=== PATIENT | male | born 1950 | race Caucasian/White ===

== ENCOUNTER → 2018-04-28 | Day surgery (SDC) | payer OTHER ==
[~2018-04-28] MED LIST: HYDR-2762 PO; HYDROmorphone 2 MG/ML VIAL IV PRN; IV RINGERS,LACTATED 1000ML 1,000 ML IV SCH; LIDOCAINE 1% PF 2 ML VIAL. ID PRN; LIDOCAINE 2% PF Vial for OR 5 ML VIAL. ONE; LOSA100T7 PO; MORPHINE SULFATE 2 MG/ML VIAL. IV PRN; ONDANSETRON PF 4 MG/2 ML VIAL. IV PRN; PROCHLORPERAZINE 10 MG/2 ML VIAL. IV PRN; PROPOFOL 40 ML IV ONE; fentaNYL PF VIAL 100 MCG/2 ML VIAL IV PRN
[2018-04-28 11:09] VITALS: BP 157/68
--- NOTE | 2018-04-28 23:18 | HP ---
ADMIT DATE: 04/28/2018 REFERRING: . REASON FOR VISIT: Recent history of colonic polyps. HISTORY OF PRESENT ILLNESS: A 67-year-old male with past medical history significant for hypertension, colonic polyps, seen for interval exam. Bowel habits are regular without diarrhea or constipation. There has been no melena and/or hematochezia. Weight and appetite are stable and he is otherwise without additional complaints. PAST MEDICAL HISTORY: Hypertension, colonic polyps. PAST SURGICAL HISTORY: Status post eye surgery and vasectomy. SOCIAL HISTORY: Social drinker, nonsmoker. FAMILY HISTORY: Otherwise noncontributory. REVIEW OF SYSTEMS: Per records. PHYSICAL EXAMINATION: GENERAL: Reveals a well-nourished, well-developed male, in no acute distress. VITAL SIGNS: Temperature 97.3, pulse 65, respiratory rate is 20. HEENT: Reveals normocephalic, atraumatic head. Pupils and extraocular movements are not tested. Sclerae are anicteric. NECK: Supple. LUNGS: Clear. CARDIOVASCULAR: Reveals an S1, S2 without S3, S4 or appreciable murmur. ABDOMEN: There was a soft abdomen, normal bowel sounds without appreciable hepatosplenomegaly. EXTREMITIES: Reveals no cyanosis, clubbing or edema. IMPRESSION: History of colonic polyps. Surveillance exam is recommended at this time. Risks and benefits have been discussed with the patient including risk of perforation. She is willing to proceed. SKYLA MCINTOSH MD DR: GABRIELA/george JOB#: [id number] / [id number]
--- NOTE | 2018-05-02 08:15 | PATHOLOGY ---
[facility] Accession Number: [id number] . 01 Material submitted: . PART A: BX SIGMOID POLYP PART B: BX TRANSVERSE COLON POLYP . 01 Clinical history: . Screening . 02 Diagnosis: A. Colon biopsies, sigmoid polyp: - Tubular adenoma. . B. Colon biopsies, transverse colon polyp: - Tubular adenoma. [facility]/05/01/2018 . 02 Comment: There is no high grade dysplasia or evidence of malignancy. . (JPM:mml; 05/01/18) . 02 Electronically signed: . Berry Randolph MD, Pathologist NPI- [id number] . 01 Gross description: . A. Received in formalin labeled "[place], BX sigmoid polyp," are 3 segments of lopez soft tissue measuring 0.7 x 0.2 x 0.2 cm in aggregate dimensions and ranging from 0.2 to 0.3 cm in maximum dimension. The specimen is submitted entirely in cassette A1. . B. Received in formalin labeled "[place], [place], BX transverse colon polyp," are 2 segments of lopez soft tissue measuring 0.7 x 0.3 x 0.2 cm in aggregate dimensions and ranging from 0.3 to 0.4 cm in maximum dimension. The specimen is submitted entirely in cassette B1. (TSD; 04/28/2018) TOB/TOB . 02 Pathologist provided ICD-10: D12.5, D12.3 . 02 CPT . 176367, [id number] Performed at: 01 [facility] [address], [place] [id number] MD Fili Grimes MD Phone: [phone] Performed at: 02 [facility] [place] [id number] MD Berry Randolph MD Phone: [phone]
== END | disposition home or self-care (01) ==
LOC: ENDOS 09:01
PROVIDERS: ATTEND Internal Medicine Gastroenterology
DX: Z12.11 Encounter for screening for malignant neoplasm of colon (principal); D12.5 Benign neoplasm of sigmoid colon; D12.3 Benign neoplasm of transverse colon; K64.0 First degree hemorrhoids; I10 Essential (primary) hypertension; Z86.010 Personal history of colon polyps; Z98.52 Vasectomy status; Z98.890 Other specified postprocedural states; Z72.89 Other problems related to lifestyle
CPT/HCPCS: 45380; 88305; J2001; J2704; 45385